=== PATIENT | female | born 1995 | race Caucasian/White ===

== ENCOUNTER 2020-01-04 19:37 | Emergency (ER) | payer MEDICAID, SELFPAY ==
[2020-01-04 19:38] VITALS: BP 116/66; PULSE 70; RESP 20; TEMP 36.3; O2SAT 98; BMI 18.6
--- NOTE | 2020-01-04 20:04 | ED.DCSUM_ITS ---
History of Present Illness Chief Complaint: Headache Informant: Patient Onset: Days Context: Gradual Onset Current Severity: Moderate Maximum Severity: Severe Narrative: Patient present secondary to migraine headache. She states that started on December 31. It starts at the occiput and wraps up to her posterior eyes. She does have some light sensitivity. She has had nausea and vomiting. She does have similar in the past. She states she usually will take Flexeril but she is currently out of this. She did try Aleve without improvement. - Past Medical History (1) Endometriosis Status: Chronic (2) Migraines Status: Chronic Past Medical History - Allergies and Home Meds Allergies/Adverse Reactions: Allergies No Known Allergies Allergy (Verified 01/04/20 19:39) Primary Care Physician: Marce Ford NP-C [Primary Care Provider] - Prior records reviewed: Yes Surgical History: appendectomy, cholecystectomy, - - Neuroendocrine tumor of colon Lives: Spouse/ Significant Other Review of Systems General: Denies: Chills, Fever Eyes: Denies: Visual changes - bilaterally ENT: Denies: Bilateral ear pain Cardiovascular: Denies: Chest pain Respiratory: Denies: Dyspnea, Cough Gastrointestinal: Reports: Nausea, Vomiting. Denies: Abdominal pain Musculoskeletal: Denies: Extremity Pain Skin: Denies: Rash Neurological: Reports: Headache Psych: Denies: Depression Hematologic: Denies: Easy bruising, Easy bleeding Allergy: Denies: Uticaria Physical Exam Vital Signs/Narrative: Vital Signs Temp Pulse Resp BP Pulse Ox 01/04/20 19:38 97.4 F L 70 20 H 116/66 98 Inital Vital Signs reviewed: Yes General: Well nourished, Well developed Head: Normocephalic ENT: Moist mucous membranes Neck: Supple, - - No meningismus Cardiovascular: Regular rate, Regular rhythm Respiratory: No distress, CTA bilaterally Abdomen: Soft, Nontender Extremities: Nontender Skin: Normal color Neurological: Alert, Oriented x3, Normal Strength, Normal Sensation Psychological: Normal affect Diagnostic/Tx/Re-eval - Medical Decision Making Patient was given Toradol, Reglan, Benadryl, and IV fluids. On repeat evaluation she feels much improved. She will be discharged home with significant other at this time. ED Disposition - Plan for ED Patient: Disposition: Home or Assisted Living Diagnosis: Migraine Instructions: ED, Migraine (Classical) Referrals: Queden,Marce, DUAL [employer]ATE SUPERVISOR-C [Primary Care Provider] - 3-5 Days if not improving
[2020-01-04] MEDS: DiphenhydrAMINE 50 MG/ML Syringe 25 MG IV (20:47)
[2020-01-04] MEDS: Metoclopramide 10 MG/2 ML Vial IV (20:47)
[2020-01-04] MEDS: 0.9% Normal Saline 1,000 ML 999 ML IV (20:47)
[2020-01-04] MEDS: Ketorolac 30 MG/ML Syringe IV (20:47)
[2020-01-04 21:56] VITALS: BP 100/72; PULSE 72
== END 2020-01-04 22:02 | disposition home or self-care (01) ==
PROVIDERS: Emergency Provider Emergency Medicine; PCP Nurse Practitioner Family
DX: G43.909 Migraine, unspecified, not intractable, without status migrainosus (principal); N80.9 Endometriosis, unspecified
CPT/HCPCS: 96361; 96374; 96375; 99283; J7030; A4216